=== PATIENT | male | born 1985 | race Caucasian/White ===

== ENCOUNTER 2018-08-03 22:35 | Emergency (ER) | payer BC ==
[~2018-08-03] VITALS: Ht 172.7 cm; Wt 94.4 kg
[2018-08-03 22:47] VITALS: Ht 172.7 cm; Wt 94.4 kg
[2018-08-03 23:36] LABS: BASOPHIL % 0.2 % (0-2); PLATELET COUNT 303 x10^3mcL (130-400); RED CELL DISTRIBUTION WIDTH 12.4 % (11.5-14.5)
[2018-08-03 23:55] LABS: CALCIUM 9.1 mg/dL (8.5-10.1); CARBON DIOXIDE 26.7 mmol/L (21-32); CHLORIDE SERUM 101 mmol/L (98-107); CREATININE SERUM 0.8 mg/dL (0.7-1.3); GFR1 > 60 mL/min; GLUCOSE SERUM 116 mg/dL (74-106); POTASSIUM SERUM 3.9 mmol/L (3.5-5.1); SODIUM SERUM 135 mmol/L (136-145)
[2018-08-04 00:05] LABS: microscopic required? NO
[2018-08-04 00:11] LABS: ALBUMIN 4.7 g/dL (3.4-5.0); ALKALINE PHOSPHATASE 50 U/L (46-116); ALT/SGPT 37 U/L (16-63); AST/SGOT 18 U/L (15-37); BILIRUBIN TOTAL 0.6 mg/dL (0.20-1.00); LIPASE 121 IU/L (73-393)
[2018-08-04 00:14] LABS: TOTAL PROTEIN, SERUM 8.4 g/dL (6.4-8.2)
[2018-08-04 00:27] LABS: urine erythrocyte NEGATIVE (NEGATIVE)
[2018-08-04 01:26] VITALS: BP 115/56
== END 2018-08-04 01:26 | disposition home or self-care (01) ==
LOC: ED 22:35
PROVIDERS: Emergency Medicine
DX: R10.13 Epigastric pain (principal); R10.11 Right upper quadrant pain; R50.9 Fever, unspecified; R11.0 Nausea
CPT/HCPCS: J1885; J2405; J7030; Q0092

== ENCOUNTER 2020-08-17 06:07 | Day surgery (SDC) | payer BC, SELFPAY ==
[~2020-08-17] VITALS: Ht 172.7 cm; Wt 86.2 kg
[2020-08-17 07:22] VITALS: BP 155/78
[2020-08-17 07:23] LABS: microscopic required? NO
[2020-08-17 07:38] LABS: UA SPECIFIC GRAVITY 1.025 (1.005-1.035); urine erythrocyte NEGATIVE (NEGATIVE)
[2020-08-17 11:54] VITALS: BP 147/87
== END 2020-08-17 11:35 | disposition home or self-care (01) ==
LOC: DS 06:07 → OR 07:30 → DS 07:30
PROVIDERS: ATTEND Urology
DX: Z30.2 Encounter for sterilization (principal); Z98.890 Other specified postprocedural states
CPT/HCPCS: J0690; J2001; J2175; J2250; J3010; J3490